=== PATIENT | female | born 1940 | race Caucasian/White ===

== ENCOUNTER 2018-06-27 13:15 | Inpatient (IN) | payer MEDICARE ==
[~2018-06-27] VITALS: Ht 162.6 cm; Wt 73.0 kg
[~2018-06-27 13:15] MED LIST: ALLO100T30 PO; AMLO10TA6 PO; ASPI81TA45 PO; ATEN100T PO; ATOR20TA PO; BIOT25005 PO; CHOL2000 PO; CYCL5TAB PO; HYDR-3240 PO; HYDR-3241 PO; LISI-170 PO; LISI40TA PO; MAGN400T36 PO; MELO15TA24 PO; METO50TA82 PO; MULT-717 PO; NAPR220C2 PO; TICA90TA PO; TRAM50TA2 PO
[2018-06-27] MEDS ORDERED: ROSU10TA PO (13:52)
--- NOTE | 2018-06-27 14:04 | NUR ---
FIRST CONTACT WITH PT. PT C/O DIZZINESS STARTED TODAY. PT DENIES N/V/D/ASHLEY/CP AT THIS TIME. 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 NEURO INTACT. PT AOX4. RESPS EVEN AND UNLABORED. ALL MONITORS IN PLACE. EKG DONE AT TRIAGE. EDMD AT BEDSIDE AND EXPLAINING PLAN OF CARE. PT'S FAMILY AT BEDSIDE. CALL LIGHT WITHIN REACH.
[2018-06-27 14:21] LABS: BASOPHILS # (AUTO) 0.03 x10^3/uL (0-0.1); BASOPHILS % (AUTO) 1 % (0-1); EOSINOPHILS # (AUTO) 0.08 x10^3/uL (0-0.4); EOSINOPHILS % (AUTO) 1 % (1-7); LYMPHOCYTES # (AUTO) 1.59 x10^3/uL (1-3.4); LYMPHOCYTES % (AUTO) 23 % (22-44); MD NO; MEAN CORPUSCULAR HEMOGLOBIN 31.7 pg (27.0-34.8); MEAN CORPUSCULAR HGB CONC 34.3 g/dL (32.4-35.8); MEAN CORPUSCULAR VOLUME 92.3 fL (80-100); MEAN PLATELET VOLUME 8.1 fL (7.4-10.4); MONOCYTES # (AUTO) 0.53 x10^3/uL (0.2-0.8); MONOCYTES % (AUTO) 8 % (2-9); NEUTROPHILS # (AUTO) 4.66 x10^3/uL (1.8-6.8); NEUTROPHILS % (AUTO) 68 % (42-75); PLATELET COUNT 308 x10^3/uL (130-400); RED BLOOD COUNT 4.82 x10^6/uL (3.82-5.3); RED CELL DISTRIBUTION WIDTH 12.5 % (9.6-15.2)
[2018-06-27 14:31] LABS: ALBUMIN 3.6 g/dL (3.4-5.0); ANION GAP 12 mmol/L (5-15); CALCIUM 10.2 mg/dL (8.5-10.1); CHLORIDE 97 mmol/L (98-107)
--- NOTE | 2018-06-27 14:34 | NUR ---
PT AMB TO BR WITH STEADY GAIT FOR UA.
[2018-06-27 14:44] LABS: ALANINE AMINOTRANSFERASE 27 U/L (12-78); ALKALINE PHOSPHATASE 84 U/L (45-117); CREATININE 1.09 mg/dL (0.55-1.02); THYROID STIMULATING HORMONE 0.463 mIU/L (0.358-3.740); TOTAL PROTEIN 7.5 g/dL (6.4-8.2)
[2018-06-27 15:04] LABS: MICROSCOPIC AUTO
[2018-06-27 15:18] LABS: CULTURE INDICATED? YES
--- NOTE | 2018-06-27 15:20 | NUR ---
results of CT and labwork reviewed with MD Freeman.
--- NOTE | 2018-06-27 15:22 | NUR ---
[place]. PT AOX4. RESPS EVEN AND UNLABORED. PT PROVIDED WARM BLANKET. ALL MONITORS IN PLACE. CALL LIGHT WITHIN REACH. PT'S FRIEND AT BEDSIDE. DENIES ANY NEEDS AND CONCERNS AT THIS TIME.
[2018-06-27] MEDS ORDERED: CEFTRIAXONE PMX 1GM/50ML 50 ML IV ONE (15:30)
[2018-06-27] MEDS ORDERED: POTASSIUM CHLORIDE 20 MEQ TAB.ER.PRT PO ONE (15:30)
[2018-06-27] MEDS ORDERED: NS + 40MEQ KCL 1,000 ML IV SCH (15:30)
[2018-06-27] MEDS ORDERED: bp med PO (15:42)
[2018-06-27] MEDS ORDERED: POTASSIUM CHLORIDE 20 MEQ TAB.ER.PRT ONE (15:42)
[2018-06-27] MEDS ORDERED: CEFTRIAXONE PMX 1GM/50ML 50 ML ONE (15:42)
[2018-06-27] MEDS ORDERED: NS + 40MEQ KCL 0 ML IV ONE (15:43)
[2018-06-27] MEDS ORDERED: POTASSIUM CHLORIDE 20 MEQ in SODIUM CHLORIDE 0.9% 1,000 ML IV ONE (15:43)
[2018-06-27] MEDS ORDERED: NS + 20MEQ KCL 1,000 ML IV ONE (15:54)
[2018-06-27] MEDS ORDERED: SODIUM CHLORIDE FLUSH 10ML SYR IVF PRN (16:00)
--- NOTE | 2018-06-27 16:00 | NUR ---
late entry for 1600: this [facility] who stated that no blood cx are indicated prior to IV abx admin.
--- NOTE | 2018-06-27 16:17 | NUR ---
PIV PLACED BY SHAUN SHAW. PT MEDICATED PER EMAR. PT TOLERATED WELL. AWAITING CT AND ADMIT TO FLOOR. PT AOX4. RESPS EVEN AND UNLABORED.
--- NOTE | 2018-06-27 16:26 | NUR ---
HOSPITALIST AT BEDSIDE. CT PAGED TO NOTIFY PT'S PIV IS IN PLACE.
[2018-06-27] MEDS ORDERED: DOCUSATE 100 MG CAPSULE PO PRN (17:00)
[2018-06-27] MEDS ORDERED: ACETAMINOPHEN 325 MG TABLET PO PRN (17:00)
[2018-06-27] MEDS ORDERED: BACLOFEN 10 MG TABLET PO PRN (17:00)
[2018-06-27] MEDS ORDERED: POLYETHYLENE GLYCOL 17 GM PACKET PO PRN (17:00)
[2018-06-27] MEDS ORDERED: LABETALOL 5MG/ML, 20ML IVPush PRN (17:00)
[2018-06-27] MEDS ORDERED: BISACODYL 10 MG SUPP PR PRN (17:00)
[2018-06-27] MEDS ORDERED: hydrALAzine 20 MG/ML, 1ML IVPush PRN (17:00)
[2018-06-27] MEDS: NS + 20MEQ KCL 1,000 ML IV SCH (17:06)
--- NOTE | 2018-06-27 17:06 | NUR ---
PT RETURNED FROM CT. NS 1L WITH 20MCQ K STARTED AT 125ML/HR PRESCRIBED. THIS RN CLARIFIED WITH MD SCHMID THAT DESIRED DOSE POTASSIUM INFUSION IS 20MCQ PER 1 L AT 125ML/HR. PT A&O, RESPS EVEN AND UNLABORED. DENIES PAIN. FAMILY AT BEDSIDE. PT AND FAMILY UPDATED WITH POC.
[2018-06-27] MEDS ORDERED: OMNIPAQUE 350 MG/ML, 100ML BOTTLE ONE (17:08)
--- NOTE | 2018-06-27 17:21 | NUR ---
pt amb to br with steady gait.
[2018-06-27 17:31] LABS: INTERNATIONAL NORMALIZED RATIO 1.01 (0.93-1.1); PROTHROMBIN TIME 10.7 Seconds (9.6-11.5)
[2018-06-27 17:39] LABS: HEMOGLOBIN A1C 6.5 % (4.2-6.3)
[2018-06-27 17:44] LABS: FREE T4 (FREE THYROXINE) 1.44 ng/dL (0.76-1.46); THYROID STIMULATING HORMONE 0.43 mIU/L (0.358-3.740)
--- NOTE | 2018-06-27 17:44 | NUR ---
sbar report given to jon quezada. all questions answered.
[2018-06-27 19:45] VITALS: BP 144/76
[2018-06-27] MEDS: CEFTRIAXONE PMX 1GM/50ML 50 ML IV SCH (20:45)
[2018-06-27] MEDS ORDERED: FAMOTIDINE 20 MG/2 ML IVPush SCH (21:00)
[2018-06-27] MEDS ORDERED: FAMOTIDINE 20 MG TABLET PO SCH (22:02)
[2018-06-27] MEDS: ATORVASTATIN 20 MG TABLET PO SCH (23:08)
[2018-06-27] MEDS: FAMOTIDINE 20 MG TABLET PO SCH (23:09)
[2018-06-28] MEDS: NS + 20MEQ KCL 1,000 ML IV SCH ×2 (00:37→17:02)
[2018-06-28 01:05] VITALS: BP 134/71
[2018-06-28] MEDS: HYDROcodone/APAP 5/325 TABLET PO PRN ×3 (02:55→21:18)
[2018-06-28 05:41] LABS: BASOPHILS # (AUTO) 0.02 x10^3/uL (0-0.1); BASOPHILS % (AUTO) 0 % (0-1); EOSINOPHILS # (AUTO) 0.06 x10^3/uL (0-0.4); EOSINOPHILS % (AUTO) 1 % (1-7); LYMPHOCYTES % (AUTO) 33 % (22-44); MD NO; MEAN CORPUSCULAR HEMOGLOBIN 31.5 pg (27.0-34.8); MEAN CORPUSCULAR HGB CONC 33.9 g/dL (32.4-35.8); MEAN CORPUSCULAR VOLUME 92.9 fL (80-100); MONOCYTES # (AUTO) 0.49 x10^3/uL (0.2-0.8); MONOCYTES % (AUTO) 10 % (2-9); NEUTROPHILS # (AUTO) 2.84 x10^3/uL (1.8-6.8); NEUTROPHILS % (AUTO) 56 % (42-75); PLATELET COUNT 243 x10^3/uL (130-400); RED BLOOD COUNT 4.19 x10^6/uL (3.82-5.3); RED CELL DISTRIBUTION WIDTH 12.3 % (9.6-15.2)
[2018-06-28 05:46] LABS: CALCIUM 9.1 mg/dL (8.5-10.1); CHLORIDE 104 mmol/L (98-107)
[2018-06-28 05:51] LABS: ALANINE AMINOTRANSFERASE 21 U/L (12-78); ALBUMIN 3.1 g/dL (3.4-5.0); ALKALINE PHOSPHATASE 69 U/L (45-117); ANION GAP 9 mmol/L (5-15); BILIRUBIN,TOTAL 0.4 mg/dL (0.2-1.0); CHOL/HDL RATIO 2.3; CHOLESTEROL, TOTAL 145 mg/dL (140-239); CREATININE 0.87 mg/dL (0.55-1.02); HDL CHOL % 43 % (28-40); HDL CHOLESTEROL (DIRECT) 62 mg/dL (40-60); LDL CHOLESTEROL,CALCULATED 57 mg/dL (54-169); LDL/HDL RATIO 0.9 (0.5-3.0); TOTAL PROTEIN 6.4 g/dL (6.4-8.2); TRIGLYCERIDES 131 mg/dL (50-200); VLDL CHOLESTEROL 26 mg/dL (0-25)
[2018-06-28] MEDS ORDERED: POTASSIUM CHLORIDE 60 MEQ in SODIUM CHLORIDE 0.9% 1,000 ML IV ONE (06:30)
[2018-06-28] MEDS ORDERED: POTASSIUM CHLORIDE 20 MEQ TAB.ER.PRT PO ONE (06:30)
[2018-06-28 08:00] VITALS: BP 153/69
[2018-06-28] MEDS: FAMOTIDINE 20 MG TABLET PO SCH (08:54)
[2018-06-28] MEDS: ASPIRIN 81 MG TABLET EC PO SCH (08:54)
[2018-06-28 13:50] VITALS: BP 112/67
[2018-06-28 13:52] VITALS: BP 141/70
[2018-06-28 13:54] VITALS: BP 147/82
[2018-06-28] MEDS: LISINOPRIL 10 MG TABLET PO SCH (15:15)
[2018-06-28 19:44] VITALS: BP 145/77
[2018-06-28] MEDS: ATORVASTATIN 20 MG TABLET PO SCH (21:12)
[2018-06-28] MEDS: CEFTRIAXONE PMX 1GM/50ML 50 ML IV SCH (21:12)
[2018-06-29 01:16] VITALS: BP 145/81
[2018-06-29] MEDS: NS + 20MEQ KCL 1,000 ML IV SCH ×2 (02:37)
[2018-06-29 05:57] LABS: CHLORIDE 114 mmol/L (98-107)
[2018-06-29 06:27] LABS: ANION GAP 8 mmol/L (5-15); CALCIUM 9.2 mg/dL (8.5-10.1); CREATININE 0.74 mg/dL (0.55-1.02)
[2018-06-29 07:27] VITALS: BP 141/79
[2018-06-29] MEDS: LISINOPRIL 10 MG TABLET PO SCH (09:00)
[2018-06-29] MEDS: FAMOTIDINE 20 MG TABLET PO SCH (09:04)
[2018-06-29] MEDS: ASPIRIN 81 MG TABLET EC PO SCH (09:05)
[2018-06-29] MEDS: HYDROcodone/APAP 5/325 TABLET PO PRN (14:13)
[2018-06-29 14:35] VITALS: BP 139/82
[2018-06-29] MEDS ORDERED: METR-142 PO (16:12)
[2018-06-29] MEDS ORDERED: NS + 20MEQ KCL 1,000 ML IV SCH (16:38)
== END 2018-06-29 19:11 | disposition home or self-care (01) | DRG 690 ==
LOC: ED 15:42 → EDIP 15:43 → ED 16:08 → 4WST 17:49
PROVIDERS: ADMIT Internal Medicine; ATTEND Internal Medicine
DX: N30.90 Cystitis, unspecified without hematuria (principal); N17.9 Acute kidney failure, unspecified; E55.9 Vitamin D deficiency, unspecified; E78.5 Hyperlipidemia, unspecified; I27.20 Pulmonary hypertension, unspecified; K21.9 Gastro-esophageal reflux disease without esophagitis; M19.90 Unspecified osteoarthritis, unspecified site; Z96.641 Presence of right artificial hip joint; E87.6 Hypokalemia; I10 Essential (primary) hypertension; I25.10 Atherosclerotic heart disease of native coronary artery without angina pectoris; I25.2 Old myocardial infarction; Z79.02 Long term (current) use of antithrombotics/antiplatelets; Z79.82 Long term (current) use of aspirin; Z90.710 Acquired absence of both cervix and uterus
CPT/HCPCS: 36415; 70450; 70496; 71045; 80048; 80053; 80061; 81001; 82040; 83036; 84439; 84443; 85025; 85610; 87040; 87086; 93005; 93306; 93880; 99285; G0378; J0696; J3480; Q9967; J7030

== ENCOUNTER 2018-07-08 13:29 | Emergency (ER) | payer MEDICARE ==
[~2018-07-08] VITALS: Ht 162.6 cm; Wt 73.0 kg
[~2018-07-08 13:29] MED LIST changes: +METR-142 PO; +ROSU10TA PO; +bp med PO
[2018-07-08 14:23] LABS: BASOPHILS # (AUTO) 0.01 x10^3/uL (0-0.1); BASOPHILS % (AUTO) 0 % (0-1); EOSINOPHILS % (AUTO) 0 % (1-7); LYMPHOCYTES # (AUTO) 1.41 x10^3/uL (1-3.4); LYMPHOCYTES % (AUTO) 23 % (22-44); MD NO; MEAN CORPUSCULAR HEMOGLOBIN 32.2 pg (27.0-34.8); MEAN CORPUSCULAR HGB CONC 34.7 g/dL (32.4-35.8); MEAN CORPUSCULAR VOLUME 92.7 fL (80-100); MEAN PLATELET VOLUME 8.1 fL (7.4-10.4); MONOCYTES # (AUTO) 0.57 x10^3/uL (0.2-0.8); MONOCYTES % (AUTO) 9 % (2-9); NEUTROPHILS # (AUTO) 4.18 x10^3/uL (1.8-6.8); NEUTROPHILS % (AUTO) 68 % (42-75); PLATELET COUNT 263 x10^3/uL (130-400)
[2018-07-08 14:33] LABS: ALBUMIN 4.1 g/dL (3.4-5.0); ANION GAP 10 mmol/L (5-15); CALCIUM 9.5 mg/dL (8.5-10.1); CHLORIDE 103 mmol/L (98-107); CREATININE 0.97 mg/dL (0.55-1.02)
[2018-07-08 14:36] LABS: TROPONIN I < 0.015 ng/mL (0.000-0.045)
--- NOTE | 2018-07-08 15:03 | NUR ---
PT AMBULATORY TO ROOM. UNABLE TO PROVIDE URINE SAMPLE AT THIS TIME.
[2018-07-08] MEDS ORDERED: POTASSIUM CHLORIDE 20 MEQ PACKET PO ONE (16:00)
--- NOTE | 2018-07-08 16:10 | NUR ---
URINE CLEAN CATCH SENT TO LAB. PT STATES SHE HAS HAD DIARRHEA X 2 DAYS; PROVIDER NOTIFIED. SAMPLE OBTAINED AND SENT TO LAB TO HOLD.
[2018-07-08] MEDS ORDERED: POTASSIUM CHLORIDE 20 MEQ PACKET ONE ×2 (16:17)
[2018-07-08 16:22] VITALS: BP 129/84
[2018-07-08 16:39] LABS: CULTURE INDICATED? YES; MICROSCOPIC INDICATED
--- NOTE | 2018-07-08 16:43 | NUR ---
TASK RN: Patient/Caregiver given discharge instructions and they have confirmed that they understand the instructions. Patient ambulatory with steady gait, using cane
[2018-07-08] MEDS ORDERED: CIPR500T3 PO (16:45)
== END 2018-07-08 16:44 | disposition home or self-care (01) ==
LOC: ED 15:12
DX: E87.6 Hypokalemia (principal); F41.1 Generalized anxiety disorder; K21.9 Gastro-esophageal reflux disease without esophagitis; I10 Essential (primary) hypertension; I25.2 Old myocardial infarction; E78.5 Hyperlipidemia, unspecified
CPT/HCPCS: 36415; 71046; 80048; 81001; 82040; 83880; 84484; 85025; 87086; 93005; 99284

== ENCOUNTER → 2019-01-06 | Outpatient (CLI) | payer MEDICARE ==
[~2019-01-06] MED LIST changes: +AMLO-150 PO; -AMLO10TA6 PO; +AMLO10TA8 PO; +CARV6.252 PO; +CIPR500T3 PO; +HYDR12.517 PO; -METR-142 PO; +METR-90 PO; -ROSU10TA PO; +ROSU10TA2 PO; +SERT25TA3 PO; +TRAZ-137 PO; +potassium PO
== END | disposition home or self-care (01) ==
LOC: WOUND 13:42
PROVIDERS: ATTEND Internal Medicine
DX: E11.621 Type 2 diabetes mellitus with foot ulcer (principal); L97.522 Non-pressure chronic ulcer of other part of left foot with fat layer exposed; E11.40 Type 2 diabetes mellitus with diabetic neuropathy, unspecified; E78.2 Mixed hyperlipidemia; I25.2 Old myocardial infarction; E78.5 Hyperlipidemia, unspecified; I10 Essential (primary) hypertension; I25.10 Atherosclerotic heart disease of native coronary artery without angina pectoris; Z90.710 Acquired absence of both cervix and uterus
CPT/HCPCS: 97597; G0463

== ENCOUNTER 2019-01-13 14:20 | Outpatient (CLI) | payer MEDICARE | END 2019-01-13 23:59 | disposition home or self-care (01) | LOC: WOUND 14:20 | PROVIDERS: ATTEND Internal Medicine | DX: E11.621 Type 2 diabetes mellitus with foot ulcer (principal); L97.522 Non-pressure chronic ulcer of other part of left foot with fat layer exposed; E11.40 Type 2 diabetes mellitus with diabetic neuropathy, unspecified; E78.2 Mixed hyperlipidemia; I25.2 Old myocardial infarction; I10 Essential (primary) hypertension; I25.10 Atherosclerotic heart disease of native coronary artery without angina pectoris; Z90.710 Acquired absence of both cervix and uterus | CPT/HCPCS: 11104; 87070; 87176; 87205 ==

== ENCOUNTER 2019-01-15 12:18 | Outpatient (CLI) | payer MEDICARE | END 2019-01-15 23:59 | disposition home or self-care (01) | LOC: CVU 12:18 | PROVIDERS: ATTEND Internal Medicine | DX: I70.203 Unspecified atherosclerosis of native arteries of extremities, bilateral legs (principal); L97.522 Non-pressure chronic ulcer of other part of left foot with fat layer exposed; E11.621 Type 2 diabetes mellitus with foot ulcer; I10 Essential (primary) hypertension; I25.2 Old myocardial infarction; E78.5 Hyperlipidemia, unspecified | CPT/HCPCS: 93922; 93925 ==

== ENCOUNTER 2019-05-13 19:27 | Emergency (ER) | payer MEDICARE ==
[~2019-05-13] VITALS: Ht 162.6 cm; Wt 72.0 kg
[2019-05-13 19:49] VITALS: BP 165/92
[2019-05-13] MEDS ORDERED: LIDOCAINE 1%-EPI 1:100K, 20ML ONE (20:08)
[2019-05-13] MEDS ORDERED: MICROFIBRILLAR COLLAGEN 1 GM TP ONE ×2 (20:21→20:30)
[2019-05-13] MEDS ORDERED: LIDOCAINE 1%-EPI 1:100K, 20ML SQ ONE (20:30)
--- NOTE | 2019-05-13 20:30 | NUR ---
Herlinda applied under pressure dressing to left foot. CMS remains intact post placement
--- NOTE | 2019-05-13 21:15 | NUR ---
with reassessment bleeding controlled provider to bedside. to re-dress with adaptic then d/c
== END 2019-05-13 22:05 | disposition home or self-care (01) ==
LOC: ED 21:30
DX: S91.302A Unspecified open wound, left foot, initial encounter (principal); E78.5 Hyperlipidemia, unspecified; I10 Essential (primary) hypertension; F41.1 Generalized anxiety disorder; I25.2 Old myocardial infarction; X58.XXXA Exposure to other specified factors, initial encounter; Y93.89 Activity, other specified; Y92.009 Unspecified place in unspecified non-institutional (private) residence as the place of occurrence of the external cause; Y99.8 Other external cause status
CPT/HCPCS: 96372; 99283; J3490

== ENCOUNTER 2019-06-13 15:00 | Outpatient (CLI) | payer MEDICARE | END 2019-06-13 23:59 | disposition home or self-care (01) | LOC: WOUND 15:00 | PROVIDERS: ATTEND Family Medicine | DX: T81.31XA Disruption of external operation (surgical) wound, not elsewhere classified, initial encounter (principal); I25.10 Atherosclerotic heart disease of native coronary artery without angina pectoris; E11.40 Type 2 diabetes mellitus with diabetic neuropathy, unspecified; E78.2 Mixed hyperlipidemia; I25.2 Old myocardial infarction; F41.1 Generalized anxiety disorder; M19.90 Unspecified osteoarthritis, unspecified site; I12.9 Hypertensive chronic kidney disease with stage 1 through stage 4 chronic kidney disease, or unspecified chronic kidney disease; E11.22 Type 2 diabetes mellitus with diabetic chronic kidney disease; N18.9 Chronic kidney disease, unspecified; Z90.710 Acquired absence of both cervix and uterus; Z85.828 Personal history of other malignant neoplasm of skin; Y83.8 Other surgical procedures as the cause of abnormal reaction of the patient, or of later complication, without mention of misadventure at the time of the procedure; Y92.89 Other specified places as the place of occurrence of the external cause | CPT/HCPCS: 11044; 11047; G0463 ==

== ENCOUNTER → 2019-06-20 | Outpatient (CLI) | payer MEDICARE | END | disposition home or self-care (01) | LOC: WOUND 13:01 | PROVIDERS: ATTEND Family Medicine | DX: T81.31XD Disruption of external operation (surgical) wound, not elsewhere classified, subsequent encounter (principal); I25.10 Atherosclerotic heart disease of native coronary artery without angina pectoris; E11.40 Type 2 diabetes mellitus with diabetic neuropathy, unspecified; E78.5 Hyperlipidemia, unspecified; I25.2 Old myocardial infarction; F41.1 Generalized anxiety disorder; M19.90 Unspecified osteoarthritis, unspecified site; I12.9 Hypertensive chronic kidney disease with stage 1 through stage 4 chronic kidney disease, or unspecified chronic kidney disease; E11.22 Type 2 diabetes mellitus with diabetic chronic kidney disease; N18.9 Chronic kidney disease, unspecified; Z90.710 Acquired absence of both cervix and uterus; Z85.828 Personal history of other malignant neoplasm of skin; Y83.8 Other surgical procedures as the cause of abnormal reaction of the patient, or of later complication, without mention of misadventure at the time of the procedure | CPT/HCPCS: G0463 ==

== ENCOUNTER → 2019-06-27 | Outpatient (CLI) | payer MEDICARE | END | disposition home or self-care (01) | LOC: WOUND 13:11 | PROVIDERS: ATTEND Family Medicine | DX: T81.31XD Disruption of external operation (surgical) wound, not elsewhere classified, subsequent encounter (principal); I25.10 Atherosclerotic heart disease of native coronary artery without angina pectoris; E11.40 Type 2 diabetes mellitus with diabetic neuropathy, unspecified; E78.5 Hyperlipidemia, unspecified; I25.2 Old myocardial infarction; F41.1 Generalized anxiety disorder; M19.90 Unspecified osteoarthritis, unspecified site; I12.9 Hypertensive chronic kidney disease with stage 1 through stage 4 chronic kidney disease, or unspecified chronic kidney disease; E11.22 Type 2 diabetes mellitus with diabetic chronic kidney disease; N18.9 Chronic kidney disease, unspecified; Z90.710 Acquired absence of both cervix and uterus; Z85.828 Personal history of other malignant neoplasm of skin; Y83.8 Other surgical procedures as the cause of abnormal reaction of the patient, or of later complication, without mention of misadventure at the time of the procedure | CPT/HCPCS: 97597 ==

== ENCOUNTER 2019-07-04 13:32 | Outpatient (CLI) | payer MEDICARE ==
[~2019-07-04 13:32] MED LIST changes: -TRAZ-137 PO; +TRAZ-175 PO
== END 2019-07-04 23:59 | disposition home or self-care (01) ==
LOC: WOUND 13:32
PROVIDERS: ATTEND Family Medicine
DX: T81.31XD Disruption of external operation (surgical) wound, not elsewhere classified, subsequent encounter (principal); I25.10 Atherosclerotic heart disease of native coronary artery without angina pectoris; E11.40 Type 2 diabetes mellitus with diabetic neuropathy, unspecified; E78.5 Hyperlipidemia, unspecified; I25.2 Old myocardial infarction; F41.1 Generalized anxiety disorder; M19.90 Unspecified osteoarthritis, unspecified site; I12.9 Hypertensive chronic kidney disease with stage 1 through stage 4 chronic kidney disease, or unspecified chronic kidney disease; E11.22 Type 2 diabetes mellitus with diabetic chronic kidney disease; N18.9 Chronic kidney disease, unspecified; Z90.710 Acquired absence of both cervix and uterus; Z85.828 Personal history of other malignant neoplasm of skin; Y83.8 Other surgical procedures as the cause of abnormal reaction of the patient, or of later complication, without mention of misadventure at the time of the procedure
CPT/HCPCS: 97597

== ENCOUNTER 2019-07-11 13:30 | Outpatient (CLI) | payer MEDICARE ==
[~2019-07-11 13:30] MED LIST changes: +TRAZ-137 PO; -TRAZ-175 PO
== END 2019-07-11 23:59 | disposition home or self-care (01) ==
LOC: WOUND 13:30
PROVIDERS: ATTEND Family Medicine
DX: T81.31XD Disruption of external operation (surgical) wound, not elsewhere classified, subsequent encounter (principal); I25.10 Atherosclerotic heart disease of native coronary artery without angina pectoris; E11.40 Type 2 diabetes mellitus with diabetic neuropathy, unspecified; E78.5 Hyperlipidemia, unspecified; I25.2 Old myocardial infarction; F41.1 Generalized anxiety disorder; M19.90 Unspecified osteoarthritis, unspecified site; I12.9 Hypertensive chronic kidney disease with stage 1 through stage 4 chronic kidney disease, or unspecified chronic kidney disease; E11.22 Type 2 diabetes mellitus with diabetic chronic kidney disease; N18.9 Chronic kidney disease, unspecified; Z90.710 Acquired absence of both cervix and uterus; Z85.828 Personal history of other malignant neoplasm of skin; Y83.8 Other surgical procedures as the cause of abnormal reaction of the patient, or of later complication, without mention of misadventure at the time of the procedure
CPT/HCPCS: 11042

== ENCOUNTER → 2019-07-18 | Outpatient (CLI) | payer MEDICARE | END | disposition home or self-care (01) | LOC: WOUND 13:38 | PROVIDERS: ATTEND Family Medicine | DX: T81.31XD Disruption of external operation (surgical) wound, not elsewhere classified, subsequent encounter (principal); S81.802D Unspecified open wound, left lower leg, subsequent encounter; E11.40 Type 2 diabetes mellitus with diabetic neuropathy, unspecified; I25.10 Atherosclerotic heart disease of native coronary artery without angina pectoris; M10.9 Gout, unspecified; E78.5 Hyperlipidemia, unspecified; E78.2 Mixed hyperlipidemia; I25.2 Old myocardial infarction; M19.90 Unspecified osteoarthritis, unspecified site; E11.22 Type 2 diabetes mellitus with diabetic chronic kidney disease; I12.9 Hypertensive chronic kidney disease with stage 1 through stage 4 chronic kidney disease, or unspecified chronic kidney disease; N18.9 Chronic kidney disease, unspecified; F41.1 Generalized anxiety disorder; Z85.828 Personal history of other malignant neoplasm of skin; Z79.82 Long term (current) use of aspirin; Z90.49 Acquired absence of other specified parts of digestive tract; Y83.8 Other surgical procedures as the cause of abnormal reaction of the patient, or of later complication, without mention of misadventure at the time of the procedure; X58.XXXD Exposure to other specified factors, subsequent encounter | CPT/HCPCS: 97597 ==

== ENCOUNTER 2019-07-25 13:00 | Outpatient (CLI) | payer MEDICARE ==
[~2019-07-25 13:00] MED LIST changes: -TRAZ-137 PO; +TRAZ-175 PO
== END 2019-07-25 23:59 | disposition home or self-care (01) ==
LOC: WOUND 13:00
PROVIDERS: ATTEND Family Medicine
DX: T81.31XD Disruption of external operation (surgical) wound, not elsewhere classified, subsequent encounter (principal); E11.22 Type 2 diabetes mellitus with diabetic chronic kidney disease; I12.9 Hypertensive chronic kidney disease with stage 1 through stage 4 chronic kidney disease, or unspecified chronic kidney disease; N18.9 Chronic kidney disease, unspecified; E11.40 Type 2 diabetes mellitus with diabetic neuropathy, unspecified; I10 Essential (primary) hypertension; I25.10 Atherosclerotic heart disease of native coronary artery without angina pectoris; I25.2 Old myocardial infarction; E78.2 Mixed hyperlipidemia; M10.9 Gout, unspecified; M19.90 Unspecified osteoarthritis, unspecified site; F41.1 Generalized anxiety disorder; Z79.82 Long term (current) use of aspirin; Z90.710 Acquired absence of both cervix and uterus; Z90.49 Acquired absence of other specified parts of digestive tract; Z85.828 Personal history of other malignant neoplasm of skin; Y83.8 Other surgical procedures as the cause of abnormal reaction of the patient, or of later complication, without mention of misadventure at the time of the procedure
CPT/HCPCS: 97597

== ENCOUNTER → 2019-08-01 | Outpatient (CLI) | payer MEDICARE | END | disposition home or self-care (01) | LOC: WOUND 13:04 | PROVIDERS: ATTEND Family Medicine | DX: T81.31XD Disruption of external operation (surgical) wound, not elsewhere classified, subsequent encounter (principal); E11.22 Type 2 diabetes mellitus with diabetic chronic kidney disease; I12.9 Hypertensive chronic kidney disease with stage 1 through stage 4 chronic kidney disease, or unspecified chronic kidney disease; N18.9 Chronic kidney disease, unspecified; E11.40 Type 2 diabetes mellitus with diabetic neuropathy, unspecified; I10 Essential (primary) hypertension; I25.10 Atherosclerotic heart disease of native coronary artery without angina pectoris; I25.2 Old myocardial infarction; E78.2 Mixed hyperlipidemia; M10.9 Gout, unspecified; M19.90 Unspecified osteoarthritis, unspecified site; F41.1 Generalized anxiety disorder; Z79.82 Long term (current) use of aspirin; Z90.710 Acquired absence of both cervix and uterus; Z90.49 Acquired absence of other specified parts of digestive tract; Z85.828 Personal history of other malignant neoplasm of skin; Y83.8 Other surgical procedures as the cause of abnormal reaction of the patient, or of later complication, without mention of misadventure at the time of the procedure | CPT/HCPCS: 11042 ==

== ENCOUNTER 2019-08-08 11:06 | Outpatient (CLI) | payer MEDICARE | END 2019-08-08 23:59 | disposition home or self-care (01) | LOC: WOUND 11:06 | PROVIDERS: ATTEND Family Medicine | DX: T81.31XD Disruption of external operation (surgical) wound, not elsewhere classified, subsequent encounter (principal); E11.22 Type 2 diabetes mellitus with diabetic chronic kidney disease; I12.9 Hypertensive chronic kidney disease with stage 1 through stage 4 chronic kidney disease, or unspecified chronic kidney disease; N18.9 Chronic kidney disease, unspecified; E11.40 Type 2 diabetes mellitus with diabetic neuropathy, unspecified; I25.10 Atherosclerotic heart disease of native coronary artery without angina pectoris; I25.2 Old myocardial infarction; E78.2 Mixed hyperlipidemia; M10.9 Gout, unspecified; M19.90 Unspecified osteoarthritis, unspecified site; F41.1 Generalized anxiety disorder; Z79.82 Long term (current) use of aspirin; Z85.828 Personal history of other malignant neoplasm of skin; Z90.710 Acquired absence of both cervix and uterus; Z90.49 Acquired absence of other specified parts of digestive tract; Y83.8 Other surgical procedures as the cause of abnormal reaction of the patient, or of later complication, without mention of misadventure at the time of the procedure | CPT/HCPCS: 97597 ==

== ENCOUNTER → 2019-08-22 | Outpatient (CLI) | payer MEDICARE | END | disposition home or self-care (01) | LOC: WOUND 12:50 | PROVIDERS: ATTEND Family Medicine | DX: T81.31XD Disruption of external operation (surgical) wound, not elsewhere classified, subsequent encounter (principal); E11.22 Type 2 diabetes mellitus with diabetic chronic kidney disease; I12.9 Hypertensive chronic kidney disease with stage 1 through stage 4 chronic kidney disease, or unspecified chronic kidney disease; N18.9 Chronic kidney disease, unspecified; E11.40 Type 2 diabetes mellitus with diabetic neuropathy, unspecified; I25.10 Atherosclerotic heart disease of native coronary artery without angina pectoris; I25.2 Old myocardial infarction; E78.2 Mixed hyperlipidemia; M10.9 Gout, unspecified; M19.90 Unspecified osteoarthritis, unspecified site; F41.1 Generalized anxiety disorder; Z79.82 Long term (current) use of aspirin; Z85.828 Personal history of other malignant neoplasm of skin; Z90.710 Acquired absence of both cervix and uterus; Z90.49 Acquired absence of other specified parts of digestive tract; Y83.8 Other surgical procedures as the cause of abnormal reaction of the patient, or of later complication, without mention of misadventure at the time of the procedure | CPT/HCPCS: 97597 ==

== ENCOUNTER 2019-08-27 13:40 | Inpatient (IN) | payer MEDICARE ==
[~2019-08-27] VITALS: Ht 165.1 cm; Wt 77.0 kg
--- NOTE | 2019-08-27 14:09 | NUR ---
THIS IS A 78 YO F W/ C/O LT LEG PAIN, REDNESS AND SWELLING THAT STARTED YESTERDAY. PT REPORTS SHE HAS HAD WOUND ON LT FOOT THAT HAS BEEN THERE "FOR MONTHS". REPORTS NO PAIN IN FOOT. PT REPORTS NEW SOB W/ ACTIVITY. DENIES CP. PT RESTING ON [employer] W/ CALL LIGHT IN REACH. IN ROOM FOR EVAL. AWAITING ORDERS.
--- NOTE | 2019-08-27 14:28 | NUR ---
PIV STARTED. LABS AND BLOOD CULTURES DRAWN.
[2019-08-27] MEDS ORDERED: SODIUM CHLORIDE FLUSH 10ML SYR IVF ONE (14:30)
[2019-08-27] MEDS ORDERED: CEFTRIAXONE PMX 1GM/50ML 50 ML IVPB ONE (14:30)
[2019-08-27] MEDS ORDERED: CEFTRIAXONE PMX 1GM/50ML 50 ML ONE (14:39)
[2019-08-27 14:49] LABS: ALBUMIN 2.9 g/dL (3.4-5.0); ANION GAP 8 mmol/L (5-15); CALCIUM 9.2 mg/dL (8.5-10.1); CHLORIDE 104 mmol/L (98-107); CREATININE 0.71 mg/dL (0.55-1.02)
[2019-08-27 14:53] LABS: BASOPHILS # (AUTO) 0.04 x10^3/uL (0-0.1); BASOPHILS % (AUTO) 1 % (0-1); EOSINOPHILS # (AUTO) 0.01 x10^3/uL (0-0.4); EOSINOPHILS % (AUTO) 0 % (1-7); LYMPHOCYTES # (AUTO) 1.01 x10^3/uL (1-3.4); LYMPHOCYTES % (AUTO) 13 % (22-44); MD NO; MEAN CORPUSCULAR HEMOGLOBIN 29.5 pg (27.0-34.8); MEAN CORPUSCULAR VOLUME 89.3 fL (80-100); MEAN PLATELET VOLUME 8.1 fL (7.4-10.4); MONOCYTES # (AUTO) 0.58 x10^3/uL (0.2-0.8); MONOCYTES % (AUTO) 7 % (2-9); NEUTROPHILS # (AUTO) 6.29 x10^3/uL (1.8-6.8); NEUTROPHILS % (AUTO) 79 % (42-75); PLATELET COUNT 257 x10^3/uL (130-400); RED BLOOD COUNT 4.28 x10^6/uL (3.82-5.3); RED CELL DISTRIBUTION WIDTH 14.7 % (9.6-15.2)
--- NOTE | 2019-08-27 15:56 | NUR ---
ALL TESTS RESULTED. PT IS UP FOR RECHECK AT THIS TIME.
[2019-08-27] MEDS ORDERED: SODIUM CHLORIDE FLUSH 10ML SYR IVF PRN (16:30)
[2019-08-27] MEDS ORDERED: hydrALAzine 20 MG/ML, 1ML IVPush PRN (17:00)
[2019-08-27] MEDS ORDERED: morphine SULFATE 10 MG/ML, 1ML IVPush PRN (17:00)
[2019-08-27] MEDS ORDERED: ONDANSETRON 2MG/ML, 2ML IVPush PRN (17:00)
[2019-08-27] MEDS ORDERED: ONDANSETRON ODT 4 MG PO PRN (17:00)
[2019-08-27] MEDS ORDERED: ACETAMINOPHEN 325 MG TABLET PO PRN (17:00)
--- NOTE | 2019-08-27 17:39 | NUR ---
ATTEMPT TO CALL REPORT. STATES WILL CALL ME BACK WHEN READY.
--- NOTE | 2019-08-27 18:00 | NUR ---
ATTEMPT TO CALL REPORT. NO ANSWERX2.
[2019-08-27] MEDS ORDERED: ENOXAPARIN 40 MG/0.4 ML ONE (18:01)
[2019-08-27] MEDS: ENOXAPARIN 40 MG/0.4 ML SQ SCH (18:02)
--- NOTE | 2019-08-27 18:12 | NUR ---
REPORT GIVEN TO CATHLEEN DUNN. PT IS READY FOR TRANSPORT.
[2019-08-27 19:25] VITALS: BP 136/77
[2019-08-27] MEDS: TRAZODONE 50MG TABLET PO SCH (21:15)
[2019-08-28 00:58] VITALS: BP 123/72
[2019-08-28 02:14] VITALS: BP 136/77
[2019-08-28 05:45] LABS: BASOPHILS # (AUTO) 0.02 x10^3/uL (0-0.1); BASOPHILS % (AUTO) 0 % (0-1); EOSINOPHILS # (AUTO) 0.06 x10^3/uL (0-0.4); EOSINOPHILS % (AUTO) 1 % (1-7); LYMPHOCYTES # (AUTO) 0.81 x10^3/uL (1-3.4); LYMPHOCYTES % (AUTO) 10 % (22-44); MD NO; MEAN CORPUSCULAR HEMOGLOBIN 29.3 pg (27.0-34.8); MEAN CORPUSCULAR HGB CONC 32.8 g/dL (32.4-35.8); MEAN CORPUSCULAR VOLUME 89.2 fL (80-100); MEAN PLATELET VOLUME 8.3 fL (7.4-10.4); MONOCYTES % (AUTO) 7 % (2-9); NEUTROPHILS # (AUTO) 7.01 x10^3/uL (1.8-6.8); NEUTROPHILS % (AUTO) 82 % (42-75); PLATELET COUNT 232 x10^3/uL (130-400); RED BLOOD COUNT 3.98 x10^6/uL (3.82-5.3); RED CELL DISTRIBUTION WIDTH 14.6 % (9.6-15.2)
[2019-08-28 05:49] LABS: ANION GAP 6 mmol/L (5-15); CALCIUM 8.9 mg/dL (8.5-10.1); CHLORIDE 104 mmol/L (98-107)
[2019-08-28 05:52] LABS: CREATININE 0.56 mg/dL (0.55-1.02)
[2019-08-28 07:07] VITALS: BP 122/66
[2019-08-28] MEDS: SERTRALINE 50MG TABLET PO SCH (09:14)
[2019-08-28] MEDS: CARVEDILOL 6.25 MG TABLET PO SCH (09:14)
[2019-08-28] MEDS: CEFTRIAXONE PMX 1GM/50ML 50 ML IV SCH (11:00)
[2019-08-28 13:00] VITALS: BP 121/68
[2019-08-28] MEDS ORDERED: POTASSIUM CHLORIDE 20 MEQ TAB.ER.PRT PO ONE (13:30)
[2019-08-28] MEDS: ENOXAPARIN 40 MG/0.4 ML SQ SCH (17:00)
[2019-08-28 20:04] VITALS: BP 117/72
[2019-08-28] MEDS: TRAZODONE 50MG TABLET PO SCH (20:17)
[2019-08-29 03:30] VITALS: BP 121/72
[2019-08-29 07:01] VITALS: BP 125/64
[2019-08-29] MEDS: SERTRALINE 50MG TABLET PO SCH (08:23)
[2019-08-29] MEDS: CARVEDILOL 6.25 MG TABLET PO SCH (08:24)
[2019-08-29] MEDS: CEFTRIAXONE PMX 1GM/50ML 50 ML IV SCH (10:36)
[2019-08-29] MEDS ORDERED: CEPH-368 PO (11:48)
[2019-08-29 14:09] VITALS: BP 125/74
== END 2019-08-29 16:06 | disposition home health service (06) | DRG 603 ==
LOC: ED 16:23 → SUATTDRO 16:23 → OBSVTOIN 16:24 → INTOOBSV 16:24 → EDIP 16:24 → ED 16:39 → 3N 18:40 → DCLOUNGE 08-29 15:56
PROVIDERS: ADMIT Hospitalist; ATTEND Hospitalist
DX: L03.116 Cellulitis of left lower limb (principal); I25.10 Atherosclerotic heart disease of native coronary artery without angina pectoris; E87.6 Hypokalemia; E78.5 Hyperlipidemia, unspecified; M10.9 Gout, unspecified; E11.9 Type 2 diabetes mellitus without complications; Z96.641 Presence of right artificial hip joint; K21.9 Gastro-esophageal reflux disease without esophagitis; B95.4 Other streptococcus as the cause of diseases classified elsewhere; A46 Erysipelas; G89.29 Other chronic pain; M54.9 Dorsalgia, unspecified; E55.9 Vitamin D deficiency, unspecified; F41.1 Generalized anxiety disorder; I10 Essential (primary) hypertension; I27.20 Pulmonary hypertension, unspecified; I25.2 Old myocardial infarction; Z90.710 Acquired absence of both cervix and uterus; Z90.89 Acquired absence of other organs; Z82.49 Family history of ischemic heart disease and other diseases of the circulatory system; Z79.84 Long term (current) use of oral hypoglycemic drugs
CPT/HCPCS: 36415; 80048; 82040; 83605; 85025; 87040; 93922; 99285; G0378; J0696; J1650

== ENCOUNTER → 2019-09-05 | Outpatient (CLI) | payer MEDICARE ==
[~2019-09-05] MED LIST changes: +CEPH-368 PO
== END | disposition home or self-care (01) ==
LOC: WOUND 10:36
PROVIDERS: ATTEND Family Medicine
DX: T81.31XD Disruption of external operation (surgical) wound, not elsewhere classified, subsequent encounter (principal); E11.22 Type 2 diabetes mellitus with diabetic chronic kidney disease; I12.9 Hypertensive chronic kidney disease with stage 1 through stage 4 chronic kidney disease, or unspecified chronic kidney disease; N18.9 Chronic kidney disease, unspecified; E11.40 Type 2 diabetes mellitus with diabetic neuropathy, unspecified; I25.10 Atherosclerotic heart disease of native coronary artery without angina pectoris; I25.2 Old myocardial infarction; E78.2 Mixed hyperlipidemia; M10.9 Gout, unspecified; M19.90 Unspecified osteoarthritis, unspecified site; F41.1 Generalized anxiety disorder; I10 Essential (primary) hypertension; Z79.82 Long term (current) use of aspirin; Z79.84 Long term (current) use of oral hypoglycemic drugs; Z85.828 Personal history of other malignant neoplasm of skin; Z90.710 Acquired absence of both cervix and uterus; Z90.49 Acquired absence of other specified parts of digestive tract; Y83.8 Other surgical procedures as the cause of abnormal reaction of the patient, or of later complication, without mention of misadventure at the time of the procedure
CPT/HCPCS: G0463

== ENCOUNTER 2021-01-03 09:47 | Inpatient (IN) | payer MEDICARE ==
[~2021-01-03] VITALS: Ht 162.6 cm; Wt 65.3 kg
[~2021-01-03 09:47] MED LIST changes: +AMLO-211 PO; -AMLO10TA8 PO; -CIPR500T3 PO; +CIPR500T4 PO; +HYDR-2214 PO; -HYDR-3240 PO; -LISI40TA PO; +LISI40TA9 PO; +SERT-331 PO; -SERT25TA3 PO
--- NOTE | 2021-01-03 10:17 | NUR ---
PT TO ROOM FROM TRIAGE, CHANGED INTO GOWN. MONITORS IN PLACE. CALL LIGHT WITHIN REACH. PT C/O FEELING WEAK FOR A COUPLE DAYS. PT STATES SHE STARTED TAKING [place] ON SUNDAY. S/S TINGLING IN HEAD, DIZZY, WEAK, ANXIOUS AND CRAMPS. NO NEURO DEFICITS NOTED.
--- NOTE | 2021-01-03 10:47 | NUR ---
ERP AT BS FOR EVAL
--- NOTE | 2021-01-03 10:58 | NUR ---
pt ambulatory to br with upright steady, gait
[2021-01-03] MEDS ORDERED: LORazepam 1MG TABLET PO ONE (11:00)
[2021-01-03] MEDS ORDERED: LORazepam 0.5MG TABLET ONE (11:03)
--- NOTE | 2021-01-03 11:09 | NUR ---
PT MEDICATED PER MARIAJOSE LACKEY. SON AT BS. CALL LIGHT WITHIN REACH
[2021-01-03 11:12] LABS: BASOPHILS % (AUTO) 1 % (0-1); EOSINOPHILS % (AUTO) 0 % (1-7); LYMPHOCYTES % (AUTO) 15 % (22-44); MEAN CORPUSCULAR HEMOGLOBIN 32.2 pg (27.0-34.8); MEAN CORPUSCULAR HGB CONC 35.1 g/dL (32.4-35.8); MEAN PLATELET VOLUME 7.8 fL (7.4-10.4); MONOCYTES % (AUTO) 5 % (2-9); NEUTROPHILS % (AUTO) 78 % (42-75); PLATELET COUNT 338 x10^3/uL (130-400); RED BLOOD COUNT 4.96 x10^6/uL (3.82-5.3); RED CELL DISTRIBUTION WIDTH 14.9 % (9.6-15.2)
[2021-01-03 11:19] LABS: MICROSCOPIC AUTO
[2021-01-03 11:23] LABS: ALBUMIN 4.4 g/dL (3.4-5.0); ANION GAP 11 mmol/L (5-15); CALCIUM 8.3 mg/dL (8.5-10.1); CHLORIDE 98 mmol/L (98-107)
[2021-01-03 11:28] LABS: ALANINE AMINOTRANSFERASE 34 U/L (12-78); ALKALINE PHOSPHATASE 84 U/L (45-117); BILIRUBIN,TOTAL 1.3 mg/dL (0.2-1.0); TOTAL PROTEIN 8.5 g/dL (6.4-8.2); TROPONIN I < 0.015 ng/mL (0.000-0.045)
[2021-01-03] MEDS ORDERED: POTASSIUM CHLORIDE 20 MEQ PACKET PO ONE (12:00)
[2021-01-03] MEDS ORDERED: CEFTRIAXONE 1,000 MG in DEXTROSE 5% 50 ML IVPB ONE ×2 (12:00→14:00)
[2021-01-03] MEDS ORDERED: POTASSIUM CHLORIDE 40 MEQ in SODIUM CHLORIDE 0.9% 500 ML IV ONE (12:00)
[2021-01-03] MEDS ORDERED: POTASSIUM CHLORIDE 20 MEQ PACKET ONE (12:01)
--- NOTE | 2021-01-03 12:06 | NUR ---
blood cultures drawn x2, PIV placed, antibx hung. Pt medicated per emar.
--- NOTE | 2021-01-03 12:59 | NUR ---
Pt to be admitted to [facility], room 427. Report called to
[2021-01-03 13:33] VITALS: BP 143/60
[2021-01-03] MEDS ORDERED: ONDANSETRON 2MG/ML, 2ML IVPush PRN (14:00)
[2021-01-03] MEDS ORDERED: ONDANSETRON ODT 4 MG PO PRN (14:00)
[2021-01-03] MEDS ORDERED: LABETALOL 5MG/ML, 20ML IVPush PRN (14:00)
[2021-01-03] MEDS ORDERED: MELO15TA24 PO (14:26)
[2021-01-03] MEDS ORDERED: SERT-331 PO (14:26)
[2021-01-03] MEDS ORDERED: B12/1TAB3 BC (14:29)
[2021-01-03] MEDS ORDERED: AMLO-150 PO (14:29)
[2021-01-03] MEDS ORDERED: LOSA100T14 PO (14:29)
[2021-01-03] MEDS: ENOXAPARIN 40 MG/0.4 ML SQ SCH (14:33)
[2021-01-03] MEDS: LACTATED RINGERS 1,000 ML IV SCH (14:33)
[2021-01-03 18:47] VITALS: BP 147/77
[2021-01-03] MEDS: TRAZODONE 50MG TABLET PO SCH (20:35)
[2021-01-04 00:49] VITALS: BP 137/81
[2021-01-04] MEDS: LACTATED RINGERS 1,000 ML IV SCH (04:01)
[2021-01-04 06:34] LABS: BASOPHILS % (AUTO) 2 % (0-1); EOSINOPHILS % (AUTO) 3 % (1-7); LYMPHOCYTES % (AUTO) 30 % (22-44); MEAN CORPUSCULAR HEMOGLOBIN 32.2 pg (27.0-34.8); MEAN CORPUSCULAR HGB CONC 34.4 g/dL (32.4-35.8); MEAN PLATELET VOLUME 7.7 fL (7.4-10.4); MONOCYTES % (AUTO) 9 % (2-9); NEUTROPHILS % (AUTO) 55 % (42-75); PLATELET COUNT 222 x10^3/uL (130-400); RED BLOOD COUNT 4.22 x10^6/uL (3.82-5.3)
[2021-01-04 06:45] LABS: ALANINE AMINOTRANSFERASE 31 U/L (12-78); ALBUMIN 3.3 g/dL (3.4-5.0); ANION GAP 6 mmol/L (5-15); CALCIUM 7.5 mg/dL (8.5-10.1); CHLORIDE 106 mmol/L (98-107)
[2021-01-04 06:48] LABS: ALKALINE PHOSPHATASE 61 U/L (45-117); BILIRUBIN,TOTAL 0.8 mg/dL (0.2-1.0); CREATININE 0.81 mg/dL (0.55-1.02); TOTAL PROTEIN 6.4 g/dL (6.4-8.2)
[2021-01-04 07:11] VITALS: BP 160/83
[2021-01-04] MEDS ORDERED: MAGNESIUM SULFATE/D5W 100 ML ONE (07:24)
[2021-01-04] MEDS ORDERED: MAGNESIUM SULFATE PMX 2GM/50ML 50 ML ONE (07:24)
[2021-01-04] MEDS: CARVEDILOL 6.25 MG TABLET PO SCH (07:29)
[2021-01-04] MEDS: SERTRALINE 50MG TABLET PO SCH (07:29)
[2021-01-04] MEDS: AMLODIPINE 10 MG TAB PO SCH (07:29)
[2021-01-04] MEDS: MAGNESIUM OXIDE 400 MG TABLET PO SCH (07:29)
[2021-01-04] MEDS ORDERED: MAGNESIUM SULFATE PMX 2GM/50ML 50 ML IV ONE (07:30)
[2021-01-04] MEDS ORDERED: MAGNESIUM SULFATE 3 GM in SODIUM CHLORIDE 0.9% 100 ML IV ONE (07:30)
[2021-01-04] MEDS: B12 HOMEMEDPO SCH (07:38)
[2021-01-04] MEDS: B6 HOMEMEDPO SCH (07:38)
[2021-01-04] MEDS: LEVOMEFOLATE CALCIUM HOMEMEDPO SCH (07:38)
[2021-01-04] MEDS ORDERED: MAGNESIUM SULFATE/D5W 100 ML IVPB ONE (09:30)
[2021-01-04] MEDS ORDERED: POTASSIUM CHLORIDE 20 MEQ TAB.ER.PRT PO ONE (10:00)
[2021-01-04] MEDS ORDERED: POTASSIUM CHLORIDE 40 MEQ in SODIUM CHLORIDE 0.9% 500 ML IV ONE (10:00)
[2021-01-04 14:15] VITALS: BP 132/78
[2021-01-04] MEDS: ENOXAPARIN 40 MG/0.4 ML SQ SCH (14:27)
[2021-01-04] MEDS ORDERED: CEFTRIAXONE 2 GM in DEXTROSE 5% 50 ML IVPB SCH (17:00)
[2021-01-04 19:05] VITALS: BP 122/73
[2021-01-04] MEDS: TRAZODONE 50MG TABLET PO SCH (21:31)
[2021-01-05 01:12] VITALS: BP 138/80
[2021-01-05] MEDS: LACTATED RINGERS 1,000 ML IV SCH (02:28)
[2021-01-05 05:19] LABS: ALANINE AMINOTRANSFERASE 29 U/L (12-78); ANION GAP 4 mmol/L (5-15); CALCIUM 7.6 mg/dL (8.5-10.1); CHLORIDE 110 mmol/L (98-107); CREATININE 0.66 mg/dL (0.55-1.02)
[2021-01-05 05:21] LABS: ALKALINE PHOSPHATASE 55 U/L (45-117); BILIRUBIN,TOTAL 0.5 mg/dL (0.2-1.0)
[2021-01-05 05:23] LABS: BASOPHILS % (AUTO) 1 % (0-1); EOSINOPHILS % (AUTO) 4 % (1-7); LYMPHOCYTES % (AUTO) 36 % (22-44); MEAN CORPUSCULAR HEMOGLOBIN 32.3 pg (27.0-34.8); MEAN CORPUSCULAR HGB CONC 34.6 g/dL (32.4-35.8); MEAN PLATELET VOLUME 8.1 fL (7.4-10.4); MONOCYTES % (AUTO) 10 % (2-9); NEUTROPHILS % (AUTO) 49 % (42-75); PLATELET COUNT 199 x10^3/uL (130-400); RED BLOOD COUNT 4.01 x10^6/uL (3.82-5.3); RED CELL DISTRIBUTION WIDTH 14.6 % (9.6-15.2)
[2021-01-05 06:53] VITALS: BP 152/76
[2021-01-05] MEDS ORDERED: POTASSIUM CHLORIDE 40 MEQ in SODIUM CHLORIDE 0.9% 500 ML IV ONE (07:00)
[2021-01-05] MEDS ORDERED: POTASSIUM CHLORIDE 20 MEQ TAB.ER.PRT PO ONE (07:00)
[2021-01-05] MEDS: AMLODIPINE 10 MG TAB PO SCH (08:19)
[2021-01-05] MEDS: CARVEDILOL 6.25 MG TABLET PO SCH (08:19)
[2021-01-05] MEDS: MAGNESIUM OXIDE 400 MG TABLET PO SCH (08:19)
[2021-01-05] MEDS: SERTRALINE 50MG TABLET PO SCH (08:20)
[2021-01-05] MEDS: B6 HOMEMEDPO SCH (08:22)
[2021-01-05] MEDS: B12 HOMEMEDPO SCH (08:22)
[2021-01-05] MEDS: LEVOMEFOLATE CALCIUM HOMEMEDPO SCH (08:22)
[2021-01-05 13:12] VITALS: BP 123/73
[2021-01-05] MEDS ORDERED: FOSF3PAC4 PO (14:14)
[2021-01-05] MEDS: ENOXAPARIN 40 MG/0.4 ML SQ SCH (14:46)
[2021-01-05] MEDS ORDERED: POTA20TA89 PO (15:12)
== END 2021-01-05 15:36 | disposition home or self-care (01) | DRG 872 ==
LOC: ED 10:35 → SUATTDRO 12:06 → 4WST 12:24
PROVIDERS: ADMIT Family Medicine; ATTEND Family Medicine
DX: A41.9 Sepsis, unspecified organism (principal); N10 Acute pyelonephritis; N17.9 Acute kidney failure, unspecified; K21.9 Gastro-esophageal reflux disease without esophagitis; E78.5 Hyperlipidemia, unspecified; E83.42 Hypomagnesemia; E87.6 Hypokalemia; F41.1 Generalized anxiety disorder; I10 Essential (primary) hypertension; N30.90 Cystitis, unspecified without hematuria; R65.20 Severe sepsis without septic shock; Z90.710 Acquired absence of both cervix and uterus; I25.2 Old myocardial infarction; Z95.5 Presence of coronary angioplasty implant and graft; Z79.899 Other long term (current) drug therapy
CPT/HCPCS: 36415; 80053; 81001; 83605; 83735; 84145; 84484; 85025; 87040; 87086; 93005; 96374; 96375; G0378; J0696; J1650; J3480; J3475; J7040; J7120